=== PATIENT | male | born 1980 | race Caucasian/White ===

== ENCOUNTER 2016-08-22 08:48 | Inpatient (IN) | payer SELFPAY ==
--- NOTE | 2016-08-22 08:58 | EDPHY ---
H & P Time Seen by Provider: 08/22/16 08:50 HPI/ROS: CHIEF COMPLAINT: Full Trauma Activation HISTORY OF PRESENT ILLNESS: The patient is a 35 year old male, brought in by EMS as a Full Trauma Activation. The patient fell 35 feet at an indoor climbing gym. The patient did not lose consciousness. He believes he landed on his feet. He has an obvious deformity to his left elbow and right ankle. The patient received 100mcg Fentanyl during transport with little relief. He denies chest pain, abdominal pain, nausea. He does report back pain as well, but notes a history of low back pain. Cervical collar in place. Patient met in ED by myself and trauma surgeon, Dr Puckett. REVIEW OF SYSTEMS: Aside from elements discussed in the HPI, a comprehensive 10-point review of systems was reviewed and is negative. PAST MEDICAL HISTORY: Low back pain. Tests positive for TB. SOCIAL HISTORY: Nonsmoker. No alcohol. VITAL SIGNS: Reviewed by me; see NN. GENERAL: Well-developed, well-nourished, in moderate distress secondary to pain. HEENT: Head: Atraumatic, normocephalic. Face: Abrasion at nasal bridge, dry blood on forehead. PERRL, EOMI, no nystagmus. Oropharynx: No trauma, normal occlusion. Neck: Cervical collar in place. CHEST: Nontender, no subcutaneous air palpable. LUNGS: Clear to auscultation bilaterally, breath sounds are equal. CARDIAC: Regular rate and rhythm, no rubs, murmurs or gallops. ABDOMEN: Soft, nontender, nondistended, bowel sounds normal. BACK: Not examined initially. EXTREMITIES: Deformity at left elbow with obvious dislocation. Good radial pulse. Significant right ankle deformity. Dopplerable posterior tibia pulse on right. NEURO: Alert and oriented x3, cranial nerves are intact throughout, normal motor , normal sensation. SKIN: Warm and dry, no rash. Portions of this note were transcribed by a medical care manager. I personally performed a history, physical exam, medical decision making, and confirmed accuracy of information the transcribed note. Constitutional: Initial Vital Signs Temperature (C) 36.5 C 08/22/16 08:48 Heart Rate 98 08/22/16 08:48 Respiratory Rate 18 08/22/16 08:48 Blood Pressure 168/104 H 08/22/16 08:48 O2 Sat (%) 98 08/22/16 08:48 O2 Delivery Mode Room Air Allergies/Adverse Reactions: No Known Allergies Allergy (Unverified 08/22/16 08:56) Home Medications: Medication Instructions Recorded NK [No Known Home Meds] 08/22/16 Medical Decision Making - Diagnostics Imaging: Results: CT scan of the head was obtained. I viewed the images independently on the PACS system. I discussed the results of the study with the radiologist, Dr. Mckeon. Impression: Normal. Please see the full radiology report. Results: CT scan of the cervical spine was obtained. I viewed the images independently on the PACS system. I discussed the results of the study with the radiologist, Dr. Mckeon. Impression: Normal. Please see the full radiology report. Results: CT scan of the chest was obtained. I viewed the images independently on the PACS system. I discussed the results of the study with the radiologist. Impression: Normal. Please see the full radiology report. Results: CT scan of the abdomen pelvis was obtained. I viewed the images independently on the PACS system. I discussed the results of the study with the radiologist. Impression: Normal. Please see the full radiology report. Results: CT scan of the lumbar spine was obtained. I viewed the images independently on the PACS system. I discussed the results of the study with the radiologist. Impression: T12, L1, L2 compression fractures. Please see the full radiology report. Results: CT scan of the thoracic spine was obtained. I viewed the images independently on the PACS system. I discussed the results of the study with the radiologist. Impression: T12, L1, L2 compression fractures. Please see the full radiology report. X-ray: Left ankle single view was obtained. I viewed the images myself on the PACS system. My interpretation of the images is: No fracture visualized on this incomplete study. The radiologist interpretation is: No fracture. I discussed the x-ray findings with the patient. X-ray: Right ankle single view was obtained. I viewed the images myself on the PACS system. My interpretation of the images is: Tibia/fibula fracture. The radiologist interpretation is: Unstable fractures of the right tibia and fibula. I discussed the x-ray findings with the patient. X-ray: Left elbow single view was obtained. I viewed the images myself on the PACS system. My interpretation of the images is: Dislocation. The radiologist interpretation is: Elbow dislocation, incompletely evaluated. I discussed the x -ray findings with the patient. CT scan of the left upper extremity was obtained. I viewed the images independently on the PACS system. I discussed the results of the study with the radiologist. Impression:1. Dislocation of the left proximal radius and ulna at the elbow joint laterally with the proximal olecranon adjacent to the lateral distal humeral epicondyle. 2. Nondisplaced fracture suspected of the radial head. 3. Small chip fracture adjacent to the anterior distal margin of the olecranon. Small chip fracture also suspected adjacent to the proximal radial head. Please see the full radiology report. CT scan of the lower extremities was obtained. I viewed the images independently on the PACS system. I discussed the results of the study with the radiologist. The radiologist's interpretation is pending at this time. Please see the full radiology report. Procedures: Procedure: Trauma ultrasound Limited bedside ultrasound was performed and interpreted by myself for the indication of: Blunt trauma The exam was performed utilizing the thoracoabdominal emergency ultrasound protocol. Limited transthoracic echocardiogram: The pericardium was visualized and found to be negative for pericardial fluid. The study was negative for pericardial effusion. Limited abdominal ultrasound for blunt trauma. 1) The right upper quadrant was visualized and was found to be negative for intraperitoneal fluid. 2) The left upper quadrant was visualized and found to be negative for intraperitoneal fluid. The study was felt to be negative for free intraperitoneal fluid. Limited pelvic ultrasound was conducted for abdominal tenderness. The bladder was visualized and did not reveal an anechoic area outside of the adjacent urinary bladder. Bladder was distended with urine. The images were saved on the ultrasound database. The procedure was performed by myself, Dr. Priest. Procedure: Conscious sedation. Indication: Elbow dislocation The patient is an appropriate candidate to tolerate procedural sedation. The patient's vitals signs and mental status are appropriate. The risks, benefits and alternatives of the sedation were discussed with the patient. The patient is ASA classification 1. The patient's Mallampati airway score was 1 and the patient did meet the 3-3-2 airway measurements. A time out was completed. The patient was sedated with 160mg Propofol. The patient was monitored with continuous pulse oximetry, jewelry coater and end tidal CO2. There were no complications and no significant hypoxemia. I performed both the sedation and the procedure. The total time I spent at the bedside during the procedural sedation was [ ] minutes. The patient was examined after the procedural sedation and has returned to their pre-sedation baseline with normal vital signs and a normal examination. Procedure: Reduction of dislocated elbow Time-out completed immediately before the procedure. IV established. O2 administered. Placed on pulse oximeter and [id number]. Neurovascular exam intact pre-procedure. Given total of 160mg Propofol sedation. The left elbow was reduced using traction-countertraction. Reassessed post-procedure. Neurovascular status intact- normal median, radial, ulnar and axillary nerve motor and sensory exam. Exam indicated reduction. Confirmed reduction on X-ray. Arm was placed in a splint by the tech. After application of the splint I returned and re-examined the patient. The splint was adequately immobilizing the joint and distal to the splint the patient's circulation and sensation was intact.The procedure was performed by myself, Dr. Priest. Procedure: Splint placement A orthoglass splint was applied to the left lower extremity by the tech. After application of the splint I returned and re-examined the patient. The splint was adequately immobilizing the joint and distal to the splint the patient's circulation and sensation was intact. ED Course/Re-evaluation: Dr. Puckett, General Surgery was present when patient arrived. Patient was taken to CT. Imaging is pending. CT scans demonstrated lumbar spine fractures and left elbow dislocation, bilateral lower extremity ankle fractures. 1005: I spoke to Dr. Doran, Orthopedic surgery who will consult on the patient. Elbow reduced. Right ankle splinted. Admitted to general surgery. Differential Diagnosis: Differential diagnosis for this patients traumatic presentation was considered including but not limited to intracranial injury, long bone and pelvic bone fracture, spinal injury, intrathoracic injury, extremity injury, intra- abdominal injury, lacerations, abrasions, and contusions. Consult/Admit Bed Type: Dr Puckett, [facility] - Data Points Laboratory Results: Laboratory Results 08/22/16 08:55 08/22/16 08:55 Medications Given: Discontinued Medications Hydromorphone HCl (Dilaudid) 0.2 mg IVP Q2HRS PRN PRN Reason: Pain, Severe Unable to Take PO Stop: 09/01/16 10:29 Last Admin: 08/22/16 20:15 Dose: 0.2 mg Hydromorphone HCl (Dilaudid) 0.8 mg IVP ONCE ONE Stop: 08/22/16 21:00 Last Admin: 08/22/16 21:08 Dose: 0.8 mg Cefazolin Sodium/Dextrose (Ancef 2 Gm (Premix)) 100 mls @ 200 mls/hr IV ONCE ONE Stop: 08/23/16 10:29 Last Admin: 08/23/16 10:19 Dose: Not Given Cefazolin Sodium/Dextrose (Ancef 2 Gm (Premix)) 100 mls @ 200 mls/hr IV Q8HRS LETICIA PRN Reason: Protocol Stop: 08/24/16 06:29 Last Admin: 08/24/16 05:15 Dose: 100 mls Oxycodone HCl (Oxycodone Ir) 5 - 15 mg PO Q3H PRN PRN Reason: Pain, Severe Able to Take PO Stop: 09/02/16 18:40 Last Admin: 08/23/16 22:11 Dose: 5 mg Departure - Departure Disposition: [facility] Inpatient Acute Clinical Impression: Elbow dislocation, Tibia/fibula fracture, T12 compression fracture, Compression fracture of L2, Compression fracture of L1 lumbar vertebra, Injury resulting from fall from height Condition: Fair Report Scribed for: Munira Priest Report Scribed by: Marcella Simmons Date of Report: 08/22/16 Time of Report: 08:48
[2016-08-22] MEDS ORDERED: ONDANSETRON 4 MG/2 ML VIAL ONE (09:00)
[2016-08-22 09:18] LABS: ABSOLUTE NRBC COUNT 0.02 10^3/uL (0-0.01); ADD DIFF? YES; ADD MORPH? NO; ADD SCAN? NO; ATYPICAL LYMPHOCYTE FLAG 20 (0-99); FRAGMENT RBC FLAG 0 (0-99); HEMATOCRIT 48.9 % (40.0-51.0); HEMOGLOBIN 17.1 g/dL (13.7-17.5); LEFT SHIFT FLG 60 (0-99); LIPEMIA HEMOLYSIS FLAG 90 (0-99); MEAN CELL HEMOGLOBIN 31.5 pg (27.9-34.1); MEAN CELL VOLUME 90.1 fL (81.5-99.8); MEAN PLATELET VOLUME 11.2 fL (8.7-11.7); NRBC-AUTO% 0.3 % (0.0-0.2); PLATELET CLUMPS FLAG 0 (0-99); PLATELET COUNT 253 10^3/uL (150-400); RED BLOOD CELL COUNT 5.43 10^6/uL (4.40-6.38)
[2016-08-22] MEDS ORDERED: HYDROmorphONE/DILAUDID 2 MG/ML INJ ONE (09:20)
[2016-08-22 09:29] LABS: ANION GAP 16 mEq/L (8-16); CALCIUM 9.7 mg/dL (8.5-10.4); CARBON DIOXIDE 21 mEq/l (22-31); CHLORIDE 104 mEq/L (97-110); GLOMERULAR FILTRATION RATE > 60; GLUCOSE 117 mg/dL (70-100); INR 1.14 (0.83-1.16); POTASSIUM 3.9 mEq/L (3.5-5.2); PROTIME(PATIENT) 14.5 SEC (12.0-15.0); SODIUM 141 mEq/L (134-144)
[2016-08-22 09:30] LABS: APTT 30.7 SEC (23.0-38.0)
[2016-08-22 09:48] LABS: PLATELET ESTIMATE ADEQUATE (ADEQ)
[2016-08-22] MEDS ORDERED: PROPOFOL 200 MG/20 ML VIAL ONE ×2 (10:08→10:34)
[2016-08-22] MEDS ORDERED: ONDANSETRON 4 MG/2 ML VIAL IVP PRN (10:13)
[2016-08-22] MEDS ORDERED: fentaNYL 100 MCG/2 ML INJ ONE ×2 (10:31→10:35)
--- NOTE | 2016-08-22 10:41 | GHP ---
DATE OF ADMISSION: 08/22/2016 ADMITTING DIAGNOSES: 1. Fall from height (approximately 35 feet). 2. Dislocation of left elbow. 3. Compression fracture with anterior wedging of T12, L1, L2. 4. Comminuted fracture of right distal tibia and fibula. 5. Comminuted fracture of the left distal fibula and anterior pilon left tibia with evidence of old fractures of the cuboid and cuneiform fractures, left foot. HISTORY: The patient is a 35-year-old white male who was climbing at the [employer]. He was top roped but felt that his harness knot came loose. He fell landing on his feet and then fell back onto his back. He was not knocked out. He was brought by EMS to [facility]. He stated he had a little difficulty breathing initially but that has resolved. His airway is clear at this point. His breathing is unrestricted. There is no obvious bleeding. He complains of left elbow pain, lumbar pain and bilateral ankle pain. A focused history reveals: ALLERGIES: He has no known allergies. MEDICATIONS: He does not take any medications. SOCIAL HISTORY: He does not smoke. He denies alcohol use. PAST SURGICAL HISTORY: There is no prior surgery. PAST MEDICAL HISTORY: He was TB positive after a trip to [facility] and has gone through a full treatment for same. There is no history of hepatitis, HIV or transfusions. There is no history of rheumatic fever. LAST MEAL: 7:00 today PHYSICAL EXAMINATION: GENERAL: He is exposed and evaluated by Dr. Munira Priest and myself. Head-to- toe examination reveals a patient who is awake and alert. He complains of pain in his lower back, right and left ankles. He is moving all extremities. HEENT: His skull is normocephalic. He has a slight superficial laceration above the bridge of his left naris. NEURO EXAM: He is in a C-collar. He is oriented to person, place and time. He can tell us he last ate at 7 am this morning. He has normal dental occlusion. GCS = 15. Sensory motor intact with out lateralizing findings. No raccoon eyes or duarte sign. PERRLA CHEST: Clavicles are palpably normal. Chest sable to AP and lateral compression. Breath sounds equal. BACK: He complains of pain in his high lumbar region. ABDOMEN: Soft and nontender. PELVIS: Stable to AP and lateral compression. There is no tenderness in his hips. A FAST examination shows no evidence of intra-abdominal bleeding. EXTREMITIES: Right upper extremity is ranged and found to be normal. His left elbow is dislocated. He has normal function of his left forearm with normal pulse and sensation. There is no pain in his knees. His right ankle is obviously deformed. There are contusions about the left ankle. He does note that he fell in the past had a fracture of his forefoot. Good pulse/flow ( biphasic) by Doppler in right posterior tibial vessels. No pulse/flow in dorsalis pedis VITAL SIGNS: His vital signs are stable with pre hospital blood pressure of 114/ 66, heart rate of 84. On admission he was 145/98, heart rate 65, sat 100% on 2 L. He has received Zofran. He has received 0.5 mg of Dilaudid in divided doses. At this point his most pain is in the left elbow. DIAGNOSTICS: He is taken to CAT scan where CAT scans of his head, neck, chest, abdomen and pelvis are carried out. The CAT scan of his head shows no evidence of intracranial bleed. The CAT scan of his neck is unremarkable. The CAT scan of his chest shows no injury to the great vessels. No pneumothorax. No hemothorax. No rib fractures. Lumbar films do show compression fractures of T12 , L1, L2. Abdominal and pelvic CT is unremarkable. The hips are unremarkable. X-rays are as noted above. He does have a dislocation of his left elbow and the fractures as indicated. There is evidence of old fracture of the cuboid and cuneiform which is consistent with his history. His neck is examined and cleared. His left elbow is relocated in the ER by Dr Priest and Ortho JARRETT. PLAN: Orthopedics to be consulted. He will be admitted to Trauma. We will observe for the 1st 24 hours and if no other issues are identified will then transfer to Orthopedics. /[id number]/MODL MTDD
[2016-08-22] MEDS: KETOROLAC 30 MG/1 ML SDV IVP SCH ×3 (12:35→22:59)
[2016-08-22] MEDS: LR 1,000 ML IV SCH ×2 (12:38→23:00)
--- NOTE | 2016-08-22 13:11 | SOAPPROG ---
SOAP Progress Note Assessment/Plan: Assessment: Plan: Subjective: images reviewed elbow reduced pilon fracture PA to see. to follow. 1 pm. 08/22/16 Objective: Vital Signs Temp Pulse Resp BP Pulse Ox 36.9 C 62 14 132/82 H 97 08/22/16 11:38 08/22/16 11:38 08/22/16 11:38 08/22/16 11:38 08/22/16 11:38 08/21/16 08/22/16 08/23/16 05:59 05:59 05:59 Intake Total 2000 Output Total 775 Balance 1225 PT 14.5 SEC (12.0-15.0) 08/22/16 08:55 INR 1.14 (0.83-1.16) 08/22/16 08:55 ICD10 Worksheet Patient Problems: Problems Problem Status Onset Compression fracture of L1 lumbar vertebra Acute Compression fracture of L2 Acute Elbow dislocation Acute T12 compression fracture Acute Tibia/fibula fracture Acute
[2016-08-22 13:12] LABS: COLOR PALE YELLOW; LEUKOCYTE ESTERASE,URINE NEGATIVE (NEGATIVE); NITRITE,URINE NEGATIVE (NEGATIVE)
[2016-08-22] MEDS ORDERED: ACETAMINOPHEN 325 MG TAB PO SCH (14:00)
[2016-08-22] MEDS: ACETAMINOPHEN 500 MG TAB PO SCH ×2 (14:59→20:15)
[2016-08-22] MEDS: HYDROmorphONE/DILAUDID 1 MG/ML SYR IVP PRN ×3 (16:32→23:13)
--- NOTE | 2016-08-22 19:57 | PDCONSULT ---
Case Planner Note: [facility] for Orthopedics Consult note attending: dr. garret Allan jeronimo is a pleasant 35 yo male, trauma biba s/p ~35 foot fall while rock climbing in a gym, jeronimo reports that he remembers every thing, he thinks he fell because he did not "tie his rope" correctly. jeronimo remembers falling, reaching out trying to grab the rope with his right hand, and then landing on his feet and his left outstretched arm on the padded floor. patient denies loc. after his fall/landing, a 1st responder provided care until an ambulance arrived and took him to the ED. jeronimo reports that the majority of his pain is in his right ankle and left elbow. patient also stated he felt pain in his back. pmh: low back pain, tests pos for tb meds: no meds social: no alcohol, no tobacco or recreational drugs allergies: nkda Physical exam: LUE: no erythema/ecchymosis, moderate edema at left elbow, obvious left elbow dislocation w/ gross deformity of left elbow, no elbow rom assessed, palpable radial pulse, no palpable ulnar pulse RUE: no erythema/edema/ecchymosis, full elbow rom, full wrist rom, full digital rom, nvid w/ brisk cap refill, radial/ulnar pulses 2+, nvid LLE: no erythema/ecchymosis, mild edema in left ankle over lateral/medial malleolus, full knee rom, full ankle rom, nvid w/ palpable pt/dp pulses 2+, pain w/ palpation of medial/lateral mal RLE: no erythema/ecchymosis, moderate edema and obvious deformity at ankle, no ankle rom assessed, no palpable pt/dp pulses but pulses were present with ultrasound labs reviewed radiology reviewed CT b/l lower extremities -RLE: comminuted tibia and fibula fracture of pilon type -LLE: small avulsion fracture of medial malleolus, comminuted distal fibula fracture -lumbar: compression fractures of t12, l1, l2 a/p 35 yo M s/p rock climbing fall of ~ 35 feet, no LOC, multiple orthopedic injuries in his left arm, left ankle and right ankle, along with compression fractures in spine. -admit to trauma service for observation -pain mgmt per primary team, proph per primary -LUE: elbow dislocation, reduced in ED by Greer DONOVAN and dr. hinton, to remain in splint/sling -LLE: remain in posterior slab splint -RLE: remain in posterior slab splint, plan for right lower extremity orif of tib/fib on 08/23/[address] colon, therefore npo at midnight case discussed w/ dr. alegria and dr. colon, dr. colon reviewed b/l ankle ct's
[2016-08-22] MEDS ORDERED: HYDROmorphONE/DILAUDID 1 MG/ML SYR IVP ONE (20:59)
--- NOTE | 2016-08-22 21:18 | GCON ---
REASON FOR CONSULTATION: Bilateral ankle and left elbow injuries. HISTORY: The patient is a 35-year-old who fell approximately 35 feet while climbing resulting in bilateral ankle and left elbow injuries. PHYSICAL EXAMINATION: On examination, there is mild varus angulation of his right ankle with no visible deformity of his left ankle. His left elbow was initially in a deformed and dislocated position. IMAGING: Radiographs show a complex right pilon fracture with a minimally displaced, apparently stable left lateral malleolus fracture. There is additionally left elbow dislocation. PLAN: His elbow underwent closed reduction by my physician's automotive service assistant, Latrell Mendez. Bilateral lower extremities were placed in posterior splints. His right ankle would undergo a staged operative open reduction, internal fixation, with the 1st stage being tomorrow and the 2nd stage being when soft-tissue levels allow for safe intervention. The left ankle would likely be treated nonsurgically. The aforementioned operations were explained to the patient in detail. He acknowledges severity of his right ankle injury with the risk for development of posttraumatic arthrosis, despite optimal treatment. /[id number]/MODL MTDD
[2016-08-23] MEDS: HYDROmorphONE/DILAUDID 1 MG/ML SYR IVP PRN ×3 (03:18→16:19)
[2016-08-23 05:29] LABS: HEMATOCRIT 38.9 % (40.0-51.0); HEMOGLOBIN 13.5 g/dL (13.7-17.5); MEAN CELL HEMOGLOBIN 31.2 pg (27.9-34.1); MEAN CELL HEMOGLOBIN CONCENTR. 34.7 g/dL (32.4-36.7); MEAN CELL VOLUME 89.8 fL (81.5-99.8); RED BLOOD CELL COUNT 4.33 10^6/uL (4.40-6.38); RED CELL DISTRIBUTION WIDTH 11.9 % (11.5-15.2)
[2016-08-23] MEDS: ACETAMINOPHEN 500 MG TAB PO SCH ×3 (05:38→22:11)
[2016-08-23] MEDS: KETOROLAC 30 MG/1 ML SDV IVP SCH ×4 (05:38→23:02)
[2016-08-23 06:01] LABS: ALANINE AMINOTRANSFERASE 51 IU/L (21-72); ALBUMIN 3.2 g/dL (3.5-5.0); ALKALINE PHOSPHATASE 43 IU/L (38-126); ANION GAP 5 mEq/L (8-16); ASPARTATE AMINOTRANSFERASE 58 IU/L (17-59); BILIRUBIN,TOTAL 1.1 mg/dL (0.1-1.4); CALCIUM 8.5 mg/dL (8.5-10.4); CARBON DIOXIDE 26 mEq/l (22-31); CHLORIDE 102 mEq/L (97-110); CREATININE 0.7 mg/dL (0.7-1.3); GLOMERULAR FILTRATION RATE > 60; GLUCOSE 104 mg/dL (70-100); POTASSIUM 4.4 mEq/L (3.5-5.2); SODIUM 133 mEq/L (134-144); TOTAL PROTEIN 5.6 g/dL (6.3-8.2)
[2016-08-23] MEDS: LR 1,000 ML IV SCH (07:52)
[2016-08-23] MEDS ORDERED: ceFAZolin 2 GM/DEXTROSE 100 ML IV ONE (10:00)
[2016-08-23] MEDS ORDERED: BUPIVACAINE 0.5% 30 ML SDV ONE (10:01)
[2016-08-23] MEDS ORDERED: MIDAZOLAM 2 MG/2 ML VIAL ONE (10:13)
[2016-08-23] MEDS ORDERED: fentaNYL 100 MCG/2 ML INJ ONE ×2 (10:37→13:34)
[2016-08-23] MEDS ORDERED: PROPOFOL/EMULSION 500 MG/50 ML BOTTLE IV ONE ×2 (10:37)
[2016-08-23] MEDS ORDERED: ROCURONIUM 50 MG/5 ML VIAL ONE ×3 (11:06→13:02)
[2016-08-23] MEDS ORDERED: GLYCOPYRROLATE 0.2 MG/1 ML VIAL ONE ×3 (11:06→14:20)
[2016-08-23] MEDS ORDERED: DEXAMETHASONE 4 MG/ML VIAL ONE (11:06)
[2016-08-23] MEDS ORDERED: fentaNYL 250 MCG/5 ML INJ ONE (11:11)
--- NOTE | 2016-08-23 11:23 | TRAUMAPN ---
- Problem/Surgery Performed (1) Injury resulting from fall from height Assessment/Plan: PAD#1 08/23/2016 Assessment: Patient reports no new issues. Pain well controlled. Plan: Dr. Perez, Neurosurgery, to see Boris today. Dr. Bowman will take him to the OR fo ORIF. Subjective: No complaints. He reports both eructation and flatus. Objective: Vital Signs Temp Pulse Resp BP Pulse Ox 36.8 C 62 14 111/74 98 08/23/16 07:51 08/23/16 07:51 08/23/16 07:51 08/23/16 07:51 08/23/16 07:51 Laboratory Results 08/23/16 04:40 08/23/16 04:40 08/22/16 08/23/16 08/24/16 05:59 05:59 05:59 Intake Total 4339 0 Output Total 1375 200 Balance 2964 -200 PT 14.5 SEC (12.0-15.0) 08/22/16 08:55 INR 1.14 (0.83-1.16) 08/22/16 08:55 - C-Spine Clearance Cervical Spine Cleared: Yes Provider who Cleared Cervical Spine: Lavern Physical Exam - Physical Exam General Appearance: WD/WN, alert, no apparent distress Neck: non-tender, full range of motion, supple, normal inspection Respiratory: chest non-tender, lungs clear, normal breath sounds Cardiac/Chest: regular rate, rhythm Abdomen: non-tender, soft, other (Hypoactive bowel sounds) Male Genitalia: deferred Rectal: deferred Back: Normal inspection Skin: normal color, warm/dry (Left upper extremity in splint and sling, Both lower extermities in splints.) Neuro/Psych: no motor/sensory deficits, alert, normal mood/affect, oriented x 3 Time Spent w/Patient (minutes): 25
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
[2016-08-23] MEDS ORDERED: epHEDrine SULFATE 10 MG/ML SYR ONE ×2 (12:21)
[2016-08-23] MEDS ORDERED: PHENYLEPHRINE HCL 100 MCG/ML SYR ONE (12:21)
[2016-08-23] MEDS ORDERED: PROPOFOL 200 MG/20 ML VIAL ONE ×2 (13:33)
[2016-08-23] MEDS ORDERED: FUROSEMIDE 20 MG/2 ML VIAL ONE (13:36)
[2016-08-23] MEDS ORDERED: ONDANSETRON 4 MG/2 ML VIAL ONE (14:17)
[2016-08-23] MEDS ORDERED: NEOSTIGMINE METHYLSULFATE 5 MG/5 ML SYR ONE (14:20)
--- NOTE | 2016-08-23 14:50 | POSTOPPROG ---
Post Op Note Date of Operation: 08/23/16 Surgeon: Evaristo Bowman Anesthesia: GET(General Endotracheal) Pre-op Diagnosis: R tib/fib pilon, L lat mal fx, L Deltoid lig tear Post-op Diagnosis: Same Procedure: ORIF R tib/fib pilon, ORIF L lat mal, L deltoid ligament repair Inf/Abcess present in the surg proc area at time of surgery?: No EBL: 50-100
[2016-08-23] MEDS ORDERED: NALOXONE HCL 0.4 MG/ML INJ IVP PRN (14:54)
[2016-08-23] MEDS ORDERED: morphINE PCA 30 MG/30 ML PCA IV PRN (14:54)
[2016-08-23] MEDS ORDERED: D5W 1/2 NS W/ 20 KCl/L 1,000 ML IV SCH (15:00)
[2016-08-23] MEDS: oxyCODONE IR 5 MG TAB PO PRN ×2 (20:09→22:11)
[2016-08-23] MEDS: ceFAZolin 2 GM/DEXTROSE 100 ML IV SCH (22:11)
[2016-08-23] MEDS ORDERED: ZOLPIDEM TARTRATE 5 MG TAB PO PRN (22:30)
[2016-08-24] MEDS: HYDROmorphONE/DILAUDID 2 MG TAB PO PRN ×6 (03:53→22:21)
[2016-08-24] MEDS: ACETAMINOPHEN 500 MG TAB PO SCH ×3 (05:14→22:22)
[2016-08-24] MEDS: ceFAZolin 2 GM/DEXTROSE 100 ML IV SCH (05:15)
[2016-08-24] MEDS: KETOROLAC 30 MG/1 ML SDV IVP SCH ×4 (05:15→23:40)
--- NOTE | 2016-08-24 05:51 | SOAPPROG ---
SOAP Progress Note Assessment/Plan: Assessment: R Pilon, L lat malleolus, L elbow dislocation S/P ORIF L, Stage 1 ORIF R Pain tolerable (block still functioning) sasha diet + U/O Dressing intact, some sang D/C on R Toes with good cap refill Plan: Limited OOB Elevation BL LE Pt will need stage 2 ORIF on R in 5-7 days 08/24/16 05:48 Objective: Vital Signs Temp Pulse Resp BP Pulse Ox 36.7 C 76 15 101/58 L 99 08/24/16 03:48 08/24/16 03:48 08/24/16 03:48 08/24/16 03:48 08/24/16 03:48 Laboratory Results 08/23/16 04:40 08/23/16 04:40 08/22/16 08/23/16 08/24/16 05:59 05:59 05:59 Intake Total 4339 4450 Output Total 1375 3185 Balance 2964 1265 PT 14.5 SEC (12.0-15.0) 08/22/16 08:55 INR 1.14 (0.83-1.16) 08/22/16 08:55 ICD10 Worksheet Patient Problems: Problems Problem Status Onset Compression fracture of L1 lumbar vertebra Acute Compression fracture of L2 Acute Elbow dislocation Acute Injury resulting from fall from height Acute T12 compression fracture Acute Tibia/fibula fracture Acute
--- NOTE | 2016-08-24 07:56 | SOAPPROG ---
SOAP Progress Note Assessment/Plan: Assessment: 35 yo male s/p fall at climbing gym with multiple orthopedic injuries including T12,L1,L2 compression fractures. He underwent left RLE surgery yesterday and states he feels his block wearing off from that. He has a splinted left LE below the knee and a splinted left upper extremity due to elbow disclocation His back does not bother him much at the moment He denies radiating pain around his back or ribs and denies sensory changes other than his right leg coming off the block Plan: Needs TLSO and upright xrays once fitted to ensure no progression of his fractures. Unable to bear weight on right leg and is pivot only with left leg. 08/24/16 07:53 Subjective: sitting up in bed eating breakfast. States his back is not bothering him much. Feels the block on his right leg is wearing off. Objective: Vital Signs Temp Pulse Resp BP Pulse Ox 36.7 C 76 15 101/58 L 99 08/24/16 03:48 08/24/16 03:48 08/24/16 03:48 08/24/16 03:48 08/24/16 03:48 Laboratory Results 08/23/16 04:40 08/23/16 04:40 08/23/16 08/24/16 08/25/16 05:59 05:59 05:59 Intake Total 4339 4450 Output Total 1375 3185 Balance 2964 1265 PT 14.5 SEC (12.0-15.0) 08/22/16 08:55 INR 1.14 (0.83-1.16) 08/22/16 08:55 Neuro: limited testing due to splinting and recent surgery to RLE sensation intact throughout ICD10 Worksheet Patient Problems: Problems Problem Status Onset Compression fracture of L1 lumbar vertebra Acute Compression fracture of L2 Acute Elbow dislocation Acute Injury resulting from fall from height Acute T12 compression fracture Acute Tibia/fibula fracture Acute
[2016-08-24] MEDS: HYDROmorphONE/DILAUDID 1 MG/ML SYR IVP PRN ×3 (09:17→17:07)
--- NOTE | 2016-08-24 10:28 | TRAUMAPN ---
- Problem/Surgery Performed (1) Injury resulting from fall from height Assessment/Plan: PAD#1 08/23/2016 Assessment: Patient reports no new issues. Pain well controlled. Plan: Dr. Perez, Neurosurgery, to see Boris today. Dr. Bowman will take him to the OR fo ORIF. 08/24/2016 Assessment: Patient doing well. Pain controlled. Moving his bowels. Orthopedics managing his main issues (orthopedic) and Neurosurgery is following his compression fractures. A TLSO brace has arrived but upright xray yet to be obtained. Plan: Defer to Dr. Bowman. Subjective: slept well. pain controlled. moving bowels. Objective: Vital Signs Temp Pulse Resp BP Pulse Ox 36.3 C 58 L 15 127/88 H 96 08/24/16 08:00 08/24/16 08:00 08/24/16 08:00 08/24/16 08:00 08/24/16 08:00 Laboratory Results 08/23/16 04:40 08/23/16 04:40 08/23/16 08/24/16 08/25/16 05:59 05:59 05:59 Intake Total 4339 4450 Output Total 1375 3185 150 Balance 2964 1265 -150 PT 14.5 SEC (12.0-15.0) 08/22/16 08:55 INR 1.14 (0.83-1.16) 08/22/16 08:55 - C-Spine Clearance Cervical Spine Cleared: Yes Provider who Cleared Cervical Spine: Lavern Physical Exam - Physical Exam General Appearance: WD/WN, alert, no apparent distress Neck: non-tender, full range of motion, supple Respiratory: chest non-tender, lungs clear, normal breath sounds Cardiac/Chest: regular rate, rhythm Abdomen: normal bowel sounds, non-tender, soft Male Genitalia: deferred Rectal: deferred Back: Normal inspection Skin: normal color, warm/dry
[2016-08-25] MEDS: HYDROmorphONE/DILAUDID 2 MG TAB PO PRN ×2 (00:57→10:09)
[2016-08-25] MEDS: KETOROLAC 30 MG/1 ML SDV IVP SCH (05:50)
[2016-08-25] MEDS: ACETAMINOPHEN 500 MG TAB PO SCH (05:50)
--- NOTE | 2016-08-25 06:04 | SOAPPROG ---
SOAP Progress Note Assessment/Plan: Assessment: R Pilon, L lat malleolus, L elbow dislocation S/P ORIF L, Stage 1 ORIF R Pain tolerable (block still functioning) sasha diet + U/O Dressing intact, some sang D/C on R Toes with good cap refill Plan: Limited OOB Elevation BL LE Pt will need stage 2 ORIF on R in 5-7 days 08/24/16 05:48 08/25/16 06:02 Pain tolerable on po Sasha diet Progressing with transfers Splint/Dressings intact No new D/C NV unchanged D/C home - return next week for additional RLE surgery Objective: Vital Signs Temp Pulse Resp BP Pulse Ox 37.2 C 72 14 133/74 H 93 08/25/16 04:00 08/25/16 04:00 08/25/16 04:00 08/25/16 04:00 08/25/16 04:00 Laboratory Results 08/23/16 04:40 08/23/16 04:40 08/24/16 08/25/16 08/26/16 05:59 05:59 05:59 Intake Total 4450 1500 Output Total 3185 1800 Balance 1265 -300 PT 14.5 SEC (12.0-15.0) 08/22/16 08:55 INR 1.14 (0.83-1.16) 08/22/16 08:55 ICD10 Worksheet Patient Problems: Problems Problem Status Onset Compression fracture of L1 lumbar vertebra Acute Compression fracture of L2 Acute Elbow dislocation Acute Injury resulting from fall from height Acute T12 compression fracture Acute Tibia/fibula fracture Acute
[2016-08-25 07:26] VITALS: BP 141/96; PULSE 85; RESP 18; TEMP 98.3; O2SAT 99
--- NOTE | 2016-08-25 08:22 | GOP ---
[f rep st] OPERATIVE REPORT DATE OF OPERATION: 08/23/2016 SURGEON: Evaristo Bowman MD ANESTHESIA: General, plus popliteal and saphenous nerve blocks on the right performed by the anesth esiologist at my request for postoperative pain management. PREOPERATIVE DIAGNOSIS: 1. Right distal tibia and fibular pilon fracture. 2. Left lateral malleolus fracture. 3. Left deltoid ligament disruption. POSTOPERATIVE DIAGNOSIS: 1. Right distal tibia and fibular pilon fracture. 2. Left lateral malleolus fracture. 3. Left deltoid ligament disruption. PROCEDURE PERFORMED: 1. Open reduction, internal fixation right intra-articular tibia and pilon and fibula fracture (sta ge I internal fixation). 2. Application, right tibial calcaneal external fixator. 3. Open reduction, internal fixation, left lateral malleolus fracture. 4. Left deltoid ligament repair. 5. Intraoperative use of fluoroscopy. FINDINGS: ESTIMATED BLOOD LOSS: Minimal. INDICATIONS: Patient is a 35-year-old who sustained a fall of approximately 30 feet while climbing resulting in bilateral lower extremity injuries. On the right, he had a complex tibial pilon fractu re with left lateral malleolus fracture. Based on the nature of his injury, it was recommended that operative treatment consisting of open reduction, internal fixation be pursued. The patient acknow ledged he understood the potential risks including, but not limited to, bleeding, infection, neurova scular damage, limb loss, limited limb function, malunion, nonunion, need for hardware removal, pain or functional limitations despite operative treatment and anesthetic risks. He additionally acknow ledged that based on the severity of his injury, despite optimal operative treatment he was still at a significant increased risk for development of pain, stiffness, functional limitations and arthros is. He acknowledged he understood the potential risks, planned procedure, and postoperative plan we ll, and had all questions answered. He gave his consent for the operative procedure. DESCRIPTION OF PROCEDURE: Patient was brought in the patient brought to the operating room, and aft er popliteal and saphenous nerve blocks performed by the anesthesiologist at my request for postoper ative pain management, IV antibiotics were administered. He was placed in the supine position where general anesthetic was administered. A stress examination of the left ankle revealed significant v algus instability, consistent with complete disruption of the deltoid ligament. Based on this exami nation, it was felt that operative treatment on the left was necessary. A tourniquet was placed on the left thigh, a bump underneath the left hip and shoulder, and left lower extremity was prepped an d draped in standard sterile fashion. After marking the incision and Leopoldo wrap exsanguination, a isaura rniquet was inflated to 250. An oblique incision was made along the anterior and medial aspect of t he ankle. Skin and subcutaneous tissue were sharply incised. Complete disruption of the superficia l deep deltoid complexes were noted. A juggernaut suture anchor was placed in the medial malleolus at the location of the insertion of the deltoid. The suture ends were then secured into the disrupt ed deltoid ligament which was easily identifiable. The ligament was secured back into the medial ma lleolus, providing stability to the medial complex. Attention was then directed laterally. A longitudinal incision was made along the distal aspect of lateral malleolus. Skin and subcutaneous tissue were sharply incised. Sharp dissection was carried dorsal to the peroneal tendons, exposing the distal fibula. The fracture was reduced with a dental pick, and provisionally pinned with a Kris wire. A 2.4 mm T plate was contoured to fit the co mminuted distal fibula, serving as a buttress. Through the plate, 2 distal 2.[address] d in a distal to proximal direction. Two additional 2.4 mm screws were placed proximal to the fract ure, stabilizing the construct. Fluoroscopic views confirmed satisfactory hardware position and ranjith tomic fracture reduction. Attention was directed towards closure. The deep tissue was closed with 2-0 Vicryl suture in interr upted fashion. Subcutaneous tissue was closed with 3-0 Vicryl suture in interrupted fashion. The s kin was closed with 4-0 nylon interrupted sutures. The wounds were dressed with sterile Adaptic, 4 x 4, and Kerlix. The tourniquet was deflated on the left. The tourniquet was then placed on the ri t thigh, keeping the back table sterile during the process. A bump was placed underneath the righ t hip and shoulder, and the right lower extremity was prepped and draped in standard sterile fashion . A longitudinal incision was made along the posterior border of the fibula, extending from the ank le level proximally above the fracture site. Skin and subcutaneous tissue were sharply incised. Sh jose elias dissection was carried anterior to the peroneal tendons exposing the fibula. The superficial pe roneal nerve was identified and carefully retracted out of harm's way. A 10-hole, 3.5 low-profile r econ plate was contoured to fit the fibula. Utilizing a 2-point reduction clamp, the fracture was p rovisionally reduced. The plate was secured distally with two 3.5 mm bicortical screws just distal to the fracture and in the most distal hole in the plate. Utilizing the plate as a reduction aid, t he fracture was anatomically reduced. The plate was then secured proximally with two 3.5 mm bicorti ludy screws. Fluoroscopic views confirmed optimal hardware placement and anatomic reduction of the f racture. Through the same incision the posterior tibia was exposed. The interval between the flexor hallucis longus, and the peroneal tendon was utilized for exposure. A portion of the flexor hallucis longus was reflected off the posterior aspect of the tibia. The posterior lateral fragment was exposed. A 2.7 mm recon plate was slightly contoured to fit the posterior tibia. Holding the posterior fract ure in a reduced position with provisional Kris wire the plate was secured to the tibia in a po sterior to anterior direction with two 2.7 mm cortical screws. Unicortical 2.7 mm locking screws we re placed in the posterior fragment to hold this in a reduced position out to length while not compr omising the reduction of the anterior fragments at a subsequent date. This was necessary as reducti on of this piece would not have been possible through an anterior approach. The fluoroscopic views confirmed favorable reduction of this fracture fragment. An additional more distal posterior latera l fragment was provisionally pinned with a Kris wire. A separate 2.0 mm DC plate was contoured to fit the distal aspect of the posterior lateral tibia. Fixation was accomplished with two 2.4 mm cortical screws in the posterior distal tibial segment holding this fragment in a reduced position as well. Fluoroscopic views confirmed favorable reduction and hardware placement. Attention was directed toward closure of this wound. The deep tissue was closed with 2-0 Vicryl sut ure in interrupted fashion, subcutaneous tissue closed with 3-0 Vicryl suture in an interrupted fash ion. Skin was closed with 4-0 nylon interrupted sutures. The bump was removed, and attention was d irected toward spanning fixation. A 5.0 mm Schanz pin was placed in the superior medial calcaneal t uberosity and tibia through small incisions with careful drilling, particularly distally avoiding da mage to the neurovascular bundle. A unilateral carbon fiber bar was attached to the Shantz pins wit h a bar-to-pin clamp, and appropriate distraction through the joint was accomplished. The wounds we re dressed with sterile Adaptic, 4 x 4, and Webril. The tourniquet had been deflated prior to skin closure with no untoward bleeding seen. A posterior fiberglass splint was applied. The patient was taken to the recovery room, extubated, in stable condition postoperatively. All sponge, needle, an d instrument counts were reported as being correct. DRAINS: None. COMPLICATIONS: None. PLAN: The patient will be admitted for medical management and elevation. He would return in approx imately 1 week pending adequate resolution of his soft tissue for 2nd-stage open reduction, internal fixation of his severely comminuted distal tibial segment. /[id number]/MODL
--- NOTE | 2016-08-25 09:02 | NEUSURGPN ---
Assessment/Plan: Assessment/Plan: 35 yo male s/p fall at climbing gym with multiple orthopedic injuries including T12,L1,L2 compression fractures. -Has been tolerating brace okay, wear when >60 degrees -sitting upright xrays stable -Continue to optimize pain management -Discussed muscle spasms, pulmonary toilet, and bowel protocol with patient given lack of immobility given lack of movement due to injuries. -Patient will need follow up in Dr. Perez's office in 4 weeks with new AP/ lateral xrays of the thoracolumbar spine. -Will s/o at this time. please notify NS with any change in neuro/motor exam Subjective: LE pain from orthopedic injuries and back stiffness. Objective: NAD A&Ox3 MAEx4, 5/5 notedin electrician helper bilaterally, RUE, LLE, RLE noted fully test do to pins, able to contract quad without difficulty. - Physician Discussed Patient with : Chris Neurosurgery Physical Exam - Vitals, I&O, Labs I and O 08/24/16 08/25/16 08/26/16 05:59 05:59 05:59 Intake Total 4450 1500 500 Output Total 3185 1800 250 Balance 1265 -300 250 Intake: Oral (ml) 1100 1500 500 IV Intake (ml) 3150 IV Infused (ml) 200 ceFAZolin 2 GM/DEXTROSE 200 100 ml @ 200 mls/hr IV Q8HRS [facility] Rx#:[id number] Output: Urine (ml) 3175 1800 250 Bedside Commode 150 Catheter 1400 Toilet 250 Urinal 1775 1400 250 Estimated Blood Loss (ml) 10 Other: Intake Quantity Yes Yes Sufficient Number of Voids Catheter 1 Urinal 1 2 Number of Stools Bedside Commode 1 Vital Signs Temp Pulse Resp BP Pulse Ox 36.8 C 85 18 141/96 H 99 08/25/16 07:25 08/25/16 07:25 08/25/16 07:25 08/25/16 07:25 08/25/16 07:25 Laboratory Results 08/23/16 04:40 08/23/16 04:40 ICD10 Worksheet Patient Problems: Problems Problem Status Onset Compression fracture of L1 lumbar vertebra Acute Compression fracture of L2 Acute Elbow dislocation Acute Injury resulting from fall from height Acute T12 compression fracture Acute Tibia/fibula fracture Acute
[2016-08-30] MEDS ORDERED: PROPOFOL/EMULSION 500 MG/50 ML BOTTLE IV ONE (08:58)
[2016-08-30] MEDS ORDERED: DEXAMETHASONE 4 MG/ML VIAL ONE ×2 (08:59)
[2016-08-30] MEDS ORDERED: ROPIVACAINE HCL 150 MG/30 ML INJ ONE (09:00)
[2016-08-30] MEDS ORDERED: fentaNYL 100 MCG/2 ML INJ ONE ×3 (09:01→11:55)
[2016-08-30] MEDS ORDERED: ONDANSETRON 4 MG/2 ML VIAL ONE (11:41)
== END 2016-08-25 13:17 | disposition home or self-care (01) | DRG 493 ==
LOC: F3N 11:25
PROVIDERS: ADMIT Orthopaedic Surgery Foot and Ankle Surgery; ATTEND Surgery
PROC: 0QSJ04Z Reposition Right Fibula with Internal Fixation Device, Open Approach (ICD-10-PCS; principal; 2016-08-23 11:00)
PROC: 0QSK04Z Reposition Left Fibula with Internal Fixation Device, Open Approach (ICD-10-PCS; principal; 2016-08-23 11:00)
PROC: 0MS Bursae and Ligaments, Reposition (ICD-10-PCS; principal; 2016-08-23 11:00)
PROC: 0QSG04Z Reposition Right Tibia with Internal Fixation Device, Open Approach (ICD-10-PCS; principal; 2016-08-23 11:00)
DX: S82.871A Displaced pilon fracture of right tibia, initial encounter for closed fracture (principal); S22.080A Wedge compression fracture of T11-T12 vertebra, initial encounter for closed fracture; S32.010A Wedge compression fracture of first lumbar vertebra, initial encounter for closed fracture; S32.020A Wedge compression fracture of second lumbar vertebra, initial encounter for closed fracture; S82.62XA Displaced fracture of lateral malleolus of left fibula, initial encounter for closed fracture; S93.422A Sprain of deltoid ligament of left ankle, initial encounter; W17.89XA Other fall from one level to another, initial encounter; Y93.31 Activity, mountain climbing, rock climbing and wall climbing; S53.122A Posterior subluxation of left ulnohumeral joint, initial encounter; S92.212A Displaced fracture of cuboid bone of left foot, initial encounter for closed fracture; S92.232A Displaced fracture of intermediate cuneiform of left foot, initial encounter for closed fracture
CPT/HCPCS: 82947-QW; 97161-GP; 97166-GO; 97530-GP; A4565; C1713; C1769; G0378; J0690; J1100; J1170; J1885; J2250; J2370; J2405; J2704; J2710; J2795; J3010

== ENCOUNTER 2016-08-30 08:06 | Day surgery (SDC) | payer SELFPAY ==
[2016-08-30] MEDS ORDERED: BUPIVACAINE 0.5% 30 ML SDV ONE (08:11)
[2016-08-30] MEDS ORDERED: ceFAZolin 2 GM/DEXTROSE 100 ML IV ONE (10:30)
[2016-08-30] MEDS ORDERED: CEFAZOLIN 1 GM/DEXTROSE/50 ML BAG IV ONE (13:32)
--- NOTE | 2016-09-02 09:11 | GOP ---
[f rep st] OPERATIVE REPORT DATE OF OPERATION: 08/30/2016 SURGEON: Evaristo Bowman MD ANESTHESIA: General plus popliteal and saphenous nerve blocks performed by the anesthesiologist at my request for postoperative pain management. PREOPERATIVE DIAGNOSIS: 1. Right intra-articular distal tibial pilon fracture. 2. Retained external fixator, right lower leg. POSTOPERATIVE DIAGNOSIS: 1. Right intra-articular distal tibial pilon fracture. 2. Retained external fixator, right lower leg. PROCEDURE PERFORMED: 1. Open reduction and internal fixation of right intra-articular distal tibia fracture. 2. Removal of external fixator. 3. Intraoperative use fluoroscopy. FINDINGS: ESTIMATED BLOOD LOSS: Minimal. INDICATIONS: The patient is a 35-year-old who approximately 1 week prior sustained a severe comminu jose intra-articular distal tibia and fibula fracture. The patient underwent an initial first stage operation consisting of open reduction and internal fixation of his fibula, open reduction and inter nal fixation of his posterior lateral distal tibia, and application of a unilateral external fixator . There was significant comminution over the anterior lateral and anterior medial aspects of the antonio int, requiring additional operative treatment. The patient acknowledged he understood the potential risks of the operation including, but not limited to, bleeding, infection, neurovascular damage, li mb loss or limited limb function, malunion, nonunion, the need for hardware removal, the development of pain, functional limitations or arthrosis despite optimal operative treatment, and anesthetic ri sks. He acknowledged he understood the potential risks, planned procedure and postoperative plan we ll, and had all questions answered. He gave his consent for the operative procedure. DESCRIPTION OF PROCEDURE: The patient was brought to the operating room after IV antibiotics were a dministered. Popliteal and saphenous nerve blocks were performed by the anesthesiologist at my requ est for postoperative pain management. A tourniquet was placed on the right thigh, a bump underneat h the right hip and shoulder, and the right lower extremity was prepped and draped in the standard s terile fashion. After marking the incisions and Leopoldo wrap exsanguination, the tourniquet was inflate d to 250. An anterior lateral approach to the distal tibia was utilized for exposure, leaving an ad equate skin bridge from his posterior lateral incision. The skin and subcutaneous tissue were sharp ly incised. The superficial peroneal nerve was identified and retracted out of harm's way. The ext ensor retinaculum was incised, and dissection was carried lateral to the extensor digitorum communis tendons. Dissection was carried down to the distal tibia and joint capsule. The major anterior la teral fragment was windowed to allow for intra-articular visualization. A relatively small nonviabl e fragment was identified and removed. There was noted to be significant scuffing over the articula r surface of the anterior lateral fragment. The medial fragment was identified. This was split up the posterior medial cortex. An incision was made along the posterior medial aspect of the distal t ibia. Sharp dissection was carried along the posterior border of the tibia. Utilizing a 2-point re duction clamp, the cortical continuity was restored, subsequently restoring the articular surface di stally. A 2.4 mm DC plate was placed along the posterior medial border of the tibia and secured pro ximal to the fracture plane with two 2.4 mm screws, serving as a buttress. The anterior lateral seg ment major fragment was then reduced and provisionally pinned with a Kris wire. Fluoroscopic v iews confirmed favorable reduction. An anterior lateral distal tibial plate ([employer]) was slid extr aperiosteally along the lateral face of the tibia. Fixation was accomplished with 2.7 mm screws in a lag fashion through the distal aspect of the plate in an anterior to posterior direction, gaining purchase in the previously stabilized posterior lateral fragment. Additional 3.5 mm cortical lockin g screws were applied. The initial fixation had been accomplished just proximal to the plane of the fracture with a 3.5 mm bicortical screw going in an anterior lateral to posterior medial direction. Two additional proximal 3.5 mm bicortical screws were placed through a small incision proximally w ith dissection carried down on the plate with tenotomy scissors and protection of the neurovascular structures. In the posterior medial fragment, an additional 2.7 mm screw was placed in lag fashion across this segment. A small incision was then made inferior to the medial malleolus. Drilling wit h a 2.0 mm drill bit for placement of a 2.7 mm screw and stabilizing the medial malleolar fragment w as performed. A 2.0 mm drill bit was snapped with contact of 1 of the distal screws. An additional drill hole was made, and a 2.7 mm screw was placed across the segment in a distal to anterior fragme nt direction. The broken drill bit fragment was left imbedded in the bone. Fluoroscopic views conf irmed favorable reduction and hardware placement. Attention was directed towards closure. The retinaculum was closed with a 2-0 Vicryl suture in an i nterrupted fashion. The subcutaneous tissue was closed with 3-0 Vicryl suture in an interrupted fas hion. The skin was closed with 3-0 nylon interrupted vertical mattress sutures. There was mild ten jaswinder on the wound, but no significant difficulty with closure. The wound was dressed with sterile A daptic, 4 x 4, and Webril, and the leg was placed in a below-knee splint. The external fixator was removed with the pin sites left open. The patient was taken to the recovery room extubated and in s table condition postoperatively. All sponge, needle, and instrument counts were reported as being c orrect. DRAINS: None. COMPLICATIONS: None. PLAN: The patient will be discharged home nonweightbearing on his operative extremity. /[id number]/MODL
== END 2016-08-30 14:45 | disposition home or self-care (01) ==
LOC: FSGY 08:06
PROVIDERS: ATTEND Orthopaedic Surgery Foot and Ankle Surgery
PROC: 0QSG04Z Reposition Right Tibia with Internal Fixation Device, Open Approach (ICD-10-PCS; principal; 2016-08-30 09:45)
PROC: 0QPG05Z Removal of External Fixation Device from Right Tibia, Open Approach (ICD-10-PCS; principal; 2016-08-30 09:45)
DX: S82.871A Displaced pilon fracture of right tibia, initial encounter for closed fracture (principal); Z47.2 Encounter for removal of internal fixation device; Y93.31 Activity, mountain climbing, rock climbing and wall climbing; S53.102A Unspecified subluxation of left ulnohumeral joint, initial encounter; S32.010A Wedge compression fracture of first lumbar vertebra, initial encounter for closed fracture; S32.020A Wedge compression fracture of second lumbar vertebra, initial encounter for closed fracture; S22.080A Wedge compression fracture of T11-T12 vertebra, initial encounter for closed fracture; R76.11 Nonspecific reaction to tuberculin skin test without active tuberculosis
CPT/HCPCS: C1713; C1769; J0690

== ENCOUNTER → 2016-11-30 | Outpatient (CLI) | payer MEDICAID | LOC: FIMAGING 07:56 | PROVIDERS: ATTEND Orthopaedic Surgery Foot and Ankle Surgery | DX: S82.871D Displaced pilon fracture of right tibia, subsequent encounter for closed fracture with routine healing (principal); S82.491D Other fracture of shaft of right fibula, subsequent encounter for closed fracture with routine healing; X58.XXXD Exposure to other specified factors, subsequent encounter ==

== ENCOUNTER 2017-03-28 09:42 | Day surgery (SDC) | payer MEDICAID ==
--- NOTE | 2017-03-27 14:39 | GHP ---
[f rep st] PREOP HISTORY AND PHYSICAL DATE OF ADMISSION: 03/28/2017 DATE OF SURGERY: 03/28/2017. CHIEF COMPLAINT: Right ankle pain. HISTORY OF PRESENT ILLNESS: Patient is a 36-year old who sustained a fall climbing. He underwent op en reduction, internal fixation of a complex pilon fracture in August of 2016. The patient then walke d on it very early in the postop period resulting in hardware failure with resultant varus malalignme nt. PAST MEDICAL HISTORY: Unremarkable. PAST SURGICAL HISTORY: Positive for open reduction, internal fixation of bilateral ankle fractures. MEDICATIONS: He takes no medicines on a regular basis. ALLERGIES: Lists no drug allergies. SOCIAL HISTORY: Negative for tobacco use. PHYSICAL EXAMINATION: GENERAL: He is in overall appearing good health, no acute distress. HEENT: H ead is normocephalic. Pupils equal, round, reactive to light. Extraocular eye movements intact. NE CK: Supple. No JVD or lymphadenopathy. CHEST: Clear to auscultation. No rales, rhonchi, or wheez ing. HEART: Regular rate and rhythm. No murmurs or gallops. ABDOMEN: Soft, nontender, nondistend ed. GENITAL, RECTAL AND BREAST: Deferred. EXTREMITIES: Reveals moderate swelling in his right ank le. There is a bony prominence on the medial aspect of his distal tibia. ASSESSMENT: 1. Right tibial malunion. 2. Retained hardware, right ankle. PLAN: The patient is scheduled to undergo hardware removal with distal tibial corrective osteotomy. /[id number]/MODL
[2017-03-28] MEDS ORDERED: BUPIVACAINE 0.5% 30 ML SDV ONE (09:58)
[2017-03-28] MEDS ORDERED: LR 1,000 ML IV ONE (10:11)
[2017-03-28] MEDS ORDERED: ceFAZolin 2 GM/DEXTROSE 100 ML IV ONE (10:58)
[2017-03-28] MEDS ORDERED: CEFAZOLIN 2 GM/DEXTROSE/100 ML BAG IV ONE (11:02)
[2017-03-28] MEDS ORDERED: LIDOCAINE 2% 100 MG/5 ML SYR ONE (11:02)
[2017-03-28] MEDS ORDERED: ONDANSETRON 4 MG/2 ML VIAL ONE (11:02)
[2017-03-28] MEDS ORDERED: PROPOFOL 200 MG/20 ML VIAL ONE (11:02)
[2017-03-28] MEDS ORDERED: DEXAMETHASONE 4 MG/ML VIAL ONE (11:02)
[2017-03-28] MEDS ORDERED: MIDAZOLAM 2 MG/2 ML VIAL IVP ONE (11:03)
[2017-03-28] MEDS ORDERED: MIDAZOLAM 2 MG/2 ML VIAL ONE (11:04)
--- NOTE | 2017-03-28 11:05 | PDANEPAE ---
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, CXR was negative but he did abx 2012 - Neurologic History Hx Cerebrovascular Accident: No Hx Seizures: No Hx Dementia: No - Endocrine History Hx Diabetes: No - Renal History Hx Renal Disorders: No - Liver History Hx Hepatic Disorders: No - Neurological & Psychiatric Hx Hx Neurological and Psychiatric Disorders: No - Cancer History Hx Cancer: No - Congenital Disorder History Hx Congenital Disorders: No - GI History Hx Gastrointestinal Disorders: No - Other Health History Other Health History: wears glasses - Chronic Pain History Chronic Pain: Yes (right leg numbness still) - Surgical History Prior Surgeries: 08/30/16 right tibia external fixator removed/ ORIF with Colby ESPINOSA Review of Systems Review of systems is: negative Review of Systems: - Exercise capacity Exercise capacity: >=4 METS METS (RN): 6 METS ANE Patient History - Allergies Allergies/Adverse Reactions: No Known Allergies Allergy (Verified 02/21/17 11:30) - Home Medications Home medications: home medication list seen and reviewed Home Medications: Herbals/Supplements -Info Only 02/21/17 [Last Taken Unknown] - NPO status NPO Since - Liquids (Date): 03/28/17 NPO Since - Liquids (Time): 08:00 NPO Since - Solids (Date): 03/27/17 NPO Since - Solids (Time): 20:00 - Anes Hx Anes Hx: no prior problems - Smoking Hx Smoking Status: Never smoked - Family Anes Hx Family Anes Hx: none Family Hx Anesthesia Complications: none ANE Labs/Vital Signs - Vital Signs Blood Pressure: 119/81 Heart Rate: 67 Respiratory Rate: 18 O2 Sat (%): 99 Height: 175.26 cm Weight: 77.11 kg ANE Physical Exam - Airway Neck exam: FROM Mallampati Score: Class 1 Mouth exam: normal dental/mouth exam - Pulmonary Pulmonary: no respiratory distress - Cardiovascular Cardiovascular: regular rate and rhythym - ASA Status ASA Status: I ANE Anesthesia Plan Anesthesia Plan: GA w LMA (surgeon request popliteal nerve block, will avoid due to preexisting motor and sensory deficits in operative ankle)
[2017-03-28] MEDS ORDERED: HYDROmorphONE/DILAUDID 2 MG/ML INJ ONE (11:08)
[2017-03-28] MEDS ORDERED: CALCIUM CHLORIDE 1 GM/10 ML INJ ONE (11:15)
[2017-03-28] MEDS ORDERED: THROMBIN (BOVINE) 5,000 UNIT VIAL TP ONE (11:15)
[2017-03-28] MEDS ORDERED: epHEDrine SULFATE 10 MG/ML SYR ONE (11:27)
[2017-03-28] MEDS ORDERED: fentaNYL 100 MCG/2 ML INJ ONE ×2 (13:26→14:54)
[2017-03-28] MEDS ORDERED: ACETAMINOPHEN 500 MG TAB PO PRN (14:15)
[2017-03-28] MEDS ORDERED: ONDANSETRON 4 MG/2 ML VIAL IVP PRN (14:15)
[2017-03-28] MEDS ORDERED: OXYCODONE/APAP 5/325 TAB PO PRN (14:15)
[2017-03-28] MEDS ORDERED: HYDROmorphONE/DILAUDID 1 MG/ML INJ IVP PRN (14:15)
[2017-03-28] MEDS ORDERED: MEPERIDINE 25 MG/ML SYR IVP PRN (14:15)
[2017-03-28] MEDS ORDERED: NALOXONE HCL 0.4 MG/ML INJ IVP PRN (14:15)
[2017-03-28] MEDS ORDERED: PROMETHAZINE HCL 25 MG/ML INJ IVP PRN (14:15)
[2017-03-28] MEDS ORDERED: HYDROCODONE/APAP 5/325 TAB PO PRN (14:15)
[2017-03-28] MEDS ORDERED: fentaNYL 100 MCG/2 ML INJ IVP PRN (14:15)
[2017-03-28] MEDS ORDERED: DEXAMETHASONE 4 MG/ML VIAL IVP PRN (14:15)
--- NOTE | 2017-03-28 14:17 | POSTANESTH ---
Post Anesthetic Evaluation Cardiovascular Status: Normal, Stable, Similar to Pre-Op Cond Respiratory Status: Normal, Stable, Similar to Pre-op Cond. Level of Consciousness/Mental Status: Can Participate in Eval, Moderately Sleepy Pain Control: Adequate, Prn Tx Ordered Nausea/Vomiting Control: Adequate, Prn Tx Ordered Complications Possibly Related to Anesthesia: None Noted
--- NOTE | 2017-03-28 14:46 | POSTOPPROG ---
Post Op Note Date of Operation: 03/28/17 Surgeon: Evaristo Bowman Anesthesia: GET(General Endotracheal) Pre-op Diagnosis: Malunion L tibia, Retained hardware tibia, fibula Post-op Diagnosis: Same Procedure: L tib osteotomy, HWR fibula and tibia, local bone graft Inf/Abcess present in the surg proc area at time of surgery?: No EBL: Minimal
[2017-03-28] MEDS ORDERED: MEPERIDINE 25 MG/ML SYR ONE (14:57)
[2017-03-28 15:44] VITALS: RESP 16
[2017-03-28] MEDS ORDERED: OXYCODONE/APAP 5/325 TAB ONE (16:05)
[2017-03-28 16:18] VITALS: BP 133/89; PULSE 75; TEMP 97.3; O2SAT 97
--- NOTE | 2017-03-29 06:16 | GOP ---
[f rep st] OPERATIVE REPORT DATE OF OPERATION: 03/28/2017 SURGEON: Evaristo Bowman MD ANESTHESIA: General. PREOPERATIVE DIAGNOSIS: 1. Right tibial malunion. 2. Retained hardware, right tibia. 3. Retained hardware, right fibula. POSTOPERATIVE DIAGNOSIS: 1. Right tibial malunion. 2. Retained hardware, right tibia. 3. Retained hardware, right fibula. PROCEDURE PERFORMED: 1. Right tibial osteotomy. 2. Revision open reduction, internal fixation, right tibial malunion. 3. Hardware removal, right tibia. 4. Hardware removal, right fibula. 5. Local bone graft. 6. Intraoperative use of fluoroscopy. FINDINGS: ESTIMATED BLOOD LOSS: 100 mL. INDICATIONS: This patient is a 36-year-old who previously sustained a complex right pilon fracture. The patient underwent open reduction, internal fixation with anatomic alignment. The patient admitt edly had very early weightbearing on his fracture, which resulted in hardware failure and varus malal ignment. Fortunately, the articular segment appeared to heal without displacement. Based on the per sistence of swelling and varus malalignment, which was putting the patient at increased risk for deve lopment of posttraumatic arthrosis, after a prolonged discussion with the patient, a decision was mad e to revise the malunion correcting the deformity. The patient acknowledged he understood the potent ial risks of the operation, including but not limited to, bleeding, infection, neurovascular damage, loss of limb or function, malunion, nonunion, need for hardware removal, pain or functional limitatio n or development of arthrosis despite operative treatment, and anesthetic risks. He acknowledged he understood the potential risks, planned procedure, and postoperative plan well, and had all questions answered prior to surgery. He gave his consent for the operative procedure. DESCRIPTION OF PROCEDURE: The patient was brought to the operating room after IV antibiotics were ad ministered. He was placed in a supine position where general anesthetic was administered. The tourn iquet was placed on the right thigh and bump underneath the right hip and shoulder and right lower ex tremity was prepped and draped in standard sterile fashion. After marking the incision and Leopoldo wrap exsanguination, tourniquet was inflated to 250. Attention was initially directed toward the fibular hardware removal. The previous incision was utilized for exposure. Skin and subcutaneous tissue wer e sharply incised. Sharp dissection was carried dorsal to the peroneal tendons, exposing the lateral aspect of the fibula. The plate and screws were freed of their fibrous overgrowth and removed witho ut difficulty. Prominences along the bone were removed with a rongeur. Deep tissue was closed with 2-0 Vicryl suture in interrupted fashion. Subcutaneous tissue closed with 3-0 Vicryl suture in an in terrupted fashion. Skin closed with skin bobby. Attention was then directed toward the tibial hardware removal. The previous anterior lateral incisi on was utilized for exposure. Skin and subcutaneous tissue were sharply incised. Care was taken to avoid damage to the superficial peroneal nerve. The extensor retinaculum was incised. Dissection wa s carried just lateral to the extensor digitorum longus tendons, exposing the lateral aspect of the d istal tibia. The distal screws were identified and removed without difficulty. The plate was freed with a periosteum elevator and osteotomes. Plate was then pulled out in distal incision. The broken proximal screws came out with the plate. The extensor retinaculum was closed with 2-0 Vicryl suture in interrupted fashion. Subcutaneous tissue closed with 3-0 Vicryl suture in interrupted fashion an d the skin closed with 3-0 nylon interrupted vertical mattress sutures. Attention was then directed toward the medial tibia. The previous medial incision was utilized for e xposure. Skin and subcutaneous tissue were sharply incised. Care was taken to avoid damage to the s aphenous vein. Sharp dissection was carried down to the medial aspect of the tibia. Utilizing a chi harsha, the bony prominence, which had developed along the medial aspect of the tibia and anterior aspec t of the tibia, was removed. This bone was saved for possible later bone graft purposes. The line technician ior medial plate and screws were removed without difficulty. Kris wires were then placed parall el to the tibial plafond, parallel to the proximal tibia and perpendicular to the access of the tibia . Under fluoroscopic guidance, after protecting the dorsal and plantar aspect of the tibia with Marshal byron retractors, a saw was utilized to create an osteotomy in a medial and lateral direction leaving t he lateral cortex intact. The osteotomy was gapped open with osteotome and bone electrode cleaner. Under flu oroscopic guidance, the optimal correction was assessed. Local bone graft was harvested. A longitudinal incision was made along the lateral aspect of the pro ximal tibia overlying Gerdy's tubercle. Sharp dissection was carried down to the periosteal layer. Utilizing a chisel and osteotome, cortical window was elevated. Curettes were used to harvest cancel lous bone graft. The bone graft was impacted in place at a few of the more central and lateral aspec ts of the tibia at the medial opening osteotomy site. More structural cortical bone, which had been harvested from the medial aspect of the tibia, was impacted into place gaining more structural suppor t medially. A medial tibial periarticular locking plate ([employer]ynthe[employer]) was contoured to fit the medial ti dodie. After freeing up the medial extraperiosteal layer, both proximal and distal to the osteotomy wi th elevator, the plate was slid proximally and then back distally into proper position. A 3.5 mm bic ortical screws were placed both proximal and distal to the osteotomy site. Two 3.5 mm cortical locki ng screws were then placed through the incision distal to the osteotomy. Under fluoroscopic guidance after making small percutaneous incisions over the plate, 2 additional 3.5 mm bicortical locking scr ews were placed more proximally. Fluoroscopic views confirmed favorable osteotomy and hardware place ments. The tourniquet was deflated prior to final hardware placement and after 125 minutes with no u ntoward bleeding seen. Attention was then directed toward removal of 1 of the broken screws, which were protruding through t he medial tibia. Under fluoroscopic guidance, the tip of the screw was identified. A small incision was made overlying this. Utilizing the coring device and threaded removal device from the [employer] b roken screw removal set, the screw was removed medially without difficulty. The medial tibial incisi on was closed with 3-0 Vicryl suture and the subcutaneous tissue in interrupted fashion and 3-0 nylon interrupted vertical mattress sutures in the skin. The wounds were dressed with sterile Adaptic, 4 x 4, and Webril, and the leg was placed in a below-knee splint. Patient tolerated the procedure well and was taken to the recovery room, extubated, in stable condition postoperatively. All sponge, nee dle, and instrument counts were reported as being correct. COMPLICATIONS: None. PLAN: The patient will be discharged home, nonweightbearing on his operative extremity. /[id number]/MODL
== END 2017-03-28 16:23 | disposition home or self-care, planned readmission (81) ==
LOC: FSGY 09:42
PROVIDERS: ATTEND Orthopaedic Surgery Foot and Ankle Surgery
PROC: 0QPG04Z Removal of Internal Fixation Device from Right Tibia, Open Approach (ICD-10-PCS; principal; 2017-03-28 12:30)
PROC: 0QQG0ZZ Repair Right Tibia, Open Approach (ICD-10-PCS; principal; 2017-03-28 12:30)
PROC: 0QUG07Z Supplement Right Tibia with Autologous Tissue Substitute, Open Approach (ICD-10-PCS; principal; 2017-03-28 12:30)
PROC: 0QPJ04Z Removal of Internal Fixation Device from Right Fibula, Open Approach (ICD-10-PCS; principal; 2017-03-28 12:30)
DX: S82.871P Displaced pilon fracture of right tibia, subsequent encounter for closed fracture with malunion (principal)
CPT/HCPCS: C1713; C1769; J0690; J1100; J1170; J2001; J2250; J2405; J2704; J3010

== ENCOUNTER → 2017-06-22 | Outpatient (CLI) | payer MEDICAID | LOC: FIMAGING 10:19 | PROVIDERS: ATTEND Physician Assistant | DX: S82.391D Other fracture of lower end of right tibia, subsequent encounter for closed fracture with routine healing (principal) ==

== ENCOUNTER 2017-07-04 09:45 | Day surgery (SDC) | payer MEDICAID ==
--- NOTE | 2017-07-03 16:12 | GHP ---
[f rep st] PREOP HISTORY AND PHYSICAL DATE OF ADMISSION: 07/04/2017 CHIEF COMPLAINT: Right ankle. HISTORY OF PRESENT ILLNESS: Patient is a 36-year-old with involved history relative to his right ank le. Patient underwent open reduction, internal fixation of a tibial pilon fracture. He was weightbe aring early on against medical advise and developed failure of fixation with varus collapse. Patient subsequently underwent tibial osteotomy. He is doing well initially but developed some wound openin g and drainage. PAST MEDICAL HISTORY: Unremarkable. PAST SURGICAL HISTORY: Positive for multiple ankle surgeries. MEDICATIONS: He takes no medicines on a regular basis. ALLERGIES: Keflex. SOCIAL HISTORY: Negative for tobacco use. PHYSICAL EXAMINATION: GENERAL: He is alert and oriented x3, in no acute distress. HEENT: Head is normocephalic. Pupils equal, round, reactive to light. Extraocular eye movements intact. NECK: Brunner pple. No JVD or lymphadenopathy. CHEST: Clear to auscultation. HEART: Regular rate and rhythm. No murmurs or gallops. ABDOMEN: Soft, nontender, nondistended. GENITAL/RECTAL/BREAST: Exams defer red. EXTREMITY: There is diffuse swelling about his right lower leg. He has some superficial skin breakdown along the medial aspect of his distal tibia. ASSESSMENT: Possible right ankle infection. PLAN: It was recommended that irrigation/debridement be pursued with possible hardware removal if hi s fracture looks healed. /[id number]/MODL
[~2017-07-04 09:45] MED LIST: BUPIVACAINE 0.5% 30 ML SDV ONE; CLINDAMYCIN 900 MG/DEXTROSE 50 ML IV ONE
[2017-07-04] MEDS ORDERED: LR 1,000 ML IV ONE (09:54)
[2017-07-04] MEDS ORDERED: CLINDAMYCIN 900 MG/DEXTROSE/50 ML BAG IV ONE (10:21)
[2017-07-04] MEDS ORDERED: MIDAZOLAM 2 MG/2 ML VIAL ONE (10:24)
[2017-07-04] MEDS ORDERED: PROPOFOL/EMULSION 500 MG/50 ML BOTTLE IV ONE (10:24)
[2017-07-04] MEDS ORDERED: fentaNYL 100 MCG/2 ML INJ ONE ×3 (10:24→12:47)
[2017-07-04] MEDS ORDERED: NALOXONE HCL 0.4 MG/ML INJ IVP PRN (10:55)
--- NOTE | 2017-07-04 10:55 | PDANEPAE ---
ANE Past Medical History - Cardiovascular History Hx Hypertension: No Hx Arrhythmias: No Hx Chest Pain: No Hx Coronary Artery / Peripheral Vascular Disease: No Hx CHF / Valvular Disease: No Hx Palpitations: No - Pulmonary History Hx COPD: No Hx Asthma/Reactive Airway Disease: No Hx Recent Upper Respiratory Infection: No Hx Oxygen in Use at Home: No Hx Sleep Apnea: No Sleep Apnea Screening Result - Last Documented: Negative Pulmonary History Comment: tested positive for TB, CXR was negative but he did abx 2012 - Neurologic History Hx Cerebrovascular Accident: No Hx Seizures: No Hx Dementia: No - Endocrine History Hx Diabetes: No - Renal History Hx Renal Disorders: No - Liver History Hx Hepatic Disorders: No - Neurological & Psychiatric Hx Hx Neurological and Psychiatric Disorders: No - Cancer History Hx Cancer: No - Congenital Disorder History Hx Congenital Disorders: No - GI History Hx Gastrointestinal Disorders: No - Other Health History Other Health History: wears glasses - Chronic Pain History Chronic Pain: Yes (right leg numbness still) - Surgical History Prior Surgeries: 03/28/17 right ankle hardware removal and ORIF tibial osteotomy with [place]. 08/30/16 right tibia external fixator removed/ ORIF with Munday ANE Review of Systems Review of Systems: - Exercise capacity METS (RN): 6 METS ANE Patient History - Allergies Allergies/Adverse Reactions: cephalexin [From Keflex] Allergy (Verified 06/30/17 14:24) lips started swelling up - Home Medications Home Medications: NK [No Known Home Meds] 06/30/17 [Last Taken Unknown] - NPO status NPO Since - Liquids (Date): 07/03/17 NPO Since - Liquids (Time): 22:30 NPO Since - Solids (Date): 07/03/17 NPO Since - Solids (Time): 21:30 - Smoking Hx Smoking Status: Never smoked - Family Anes Hx Family Hx Anesthesia Complications: none ANE Labs/Vital Signs - Vital Signs Blood Pressure: 134/81 Heart Rate: 70 Respiratory Rate: 12 O2 Sat (%): 99 Height: 175.26 cm Weight: 77.11 kg ANE Physical Exam - Airway Neck exam: FROM Mallampati Score: Class 1 Mouth exam: normal dental/mouth exam - Pulmonary Pulmonary: no respiratory distress, no rales or rhonchi, clear to auscultation - Cardiovascular Cardiovascular: regular rate and rhythym, no murmur, rub, or gallop - ASA Status ASA Status: I ANE Anesthesia Plan Anesthesia Plan: GA w LMA
[2017-07-04] MEDS ORDERED: ONDANSETRON 4 MG/2 ML VIAL IVP PRN (11:00)
[2017-07-04] MEDS ORDERED: OXYCODONE/APAP 5/325 TAB PO PRN (11:00)
[2017-07-04] MEDS ORDERED: METOCLOPRAMIDE 10 MG/2 ML VIAL IVP PRN (11:00)
[2017-07-04] MEDS ORDERED: HYDROCODONE/APAP 5/325 TAB PO PRN (11:00)
[2017-07-04] MEDS ORDERED: ALBUTEROL 3 ML DEYVIAL IH PRN (11:00)
[2017-07-04] MEDS ORDERED: DEXAMETHASONE 4 MG/ML VIAL IVP PRN (11:00)
[2017-07-04] MEDS ORDERED: PROMETHAZINE HCL 25 MG/ML INJ IVP PRN (11:00)
[2017-07-04] MEDS ORDERED: MEPERIDINE 25 MG/ML SYR IVP PRN (11:00)
[2017-07-04] MEDS ORDERED: LR 500 ML IV PRN (11:00)
[2017-07-04] MEDS ORDERED: ACETAMINOPHEN 500 MG TAB PO PRN (11:00)
[2017-07-04] MEDS ORDERED: LIDOCAINE 2% 5 ML SDV ONE (11:27)
[2017-07-04] MEDS ORDERED: ONDANSETRON 4 MG/2 ML VIAL ONE (11:28)
[2017-07-04] MEDS ORDERED: KETOROLAC 30 MG/1 ML SDV ONE (11:31)
[2017-07-04] MEDS ORDERED: PROPOFOL 200 MG/20 ML VIAL ONE (11:31)
--- NOTE | 2017-07-04 12:28 | POSTOPPROG ---
Post Op Note Date of Operation: 07/04/17 Surgeon: Evaristo Bowman Anesthesia: GET(General Endotracheal) Pre-op Diagnosis: Retained hardware R tibia, possible infection Post-op Diagnosis: same Procedure: HWR, I&D Inf/Abcess present in the surg proc area at time of surgery?: Yes Depth: Deep Incisional (Fascial) (Possible. cultures obtained) EBL: 50-100
[2017-07-04] MEDS: fentaNYL 100 MCG/2 ML INJ IVP PRN ×2 (12:49→13:11)
[2017-07-04] MEDS ORDERED: OXYCODONE/APAP 5/325 TAB ONE ×2 (13:11→14:43)
--- NOTE | 2017-07-04 13:49 | POSTANESTH ---
Post Anesthetic Evaluation Cardiovascular Status: Normal, Stable Respiratory Status: Normal, Stable Level of Consciousness/Mental Status: Can Participate in Eval Pain Control: Adequate, Prn Tx Ordered Nausea/Vomiting Control: Adequate, Prn Tx Ordered Complications Possibly Related to Anesthesia: None Noted
[2017-07-04 14:00] VITALS: PULSE 72
[2017-07-04 14:10] VITALS: BP 121/69; RESP 12; O2SAT 93
[2017-07-04 14:11] VITALS: TEMP 97.5
--- NOTE | 2017-07-05 07:30 | GOP ---
[f rep st] OPERATIVE REPORT DATE OF OPERATION: 07/04/2017 SURGEON: Evaristo Bowman MD ANESTHESIA: General. PREOPERATIVE DIAGNOSIS: 1. Symptomatic retained hardware, right tibia. 2. Right lower leg probable infection. POSTOPERATIVE DIAGNOSIS: 1. Symptomatic retained hardware, right tibia. 2. Right lower leg probable infection. PROCEDURE PERFORMED: 1. Hardware removal, right tibia. 2. Irrigation and debridement, right lower leg, including skin, subcutaneous tissue, and bone. 3. Intraoperative use of fluoroscopy. FINDINGS: ESTIMATED BLOOD LOSS: Minimal. INDICATIONS: The patient is a 36-year-old with involved history relative to his right lower leg. He initially sustained a complex pilon fracture, which underwent open reduction and internal fixation. The patient weightbeared early, resulting in varus collapse. He then subsequently underwent a tibia l osteotomy. After initial favorable healing, he developed some wound breakdown and drainage, which was suspicious for infection. It was felt that formal operative debridement and removal of hardware was indicated. The patient acknowledged he understood the potential risks including but not limited to bleeding, infection, neurovascular damage leading to loss of limb and limb function, nonunion requ iring additional operative treatment, persistent infection despite operative treatment, and anestheti c risks. He acknowledged he understood the potential risks, planned procedure, and postoperative cristiane n well, and all questions were answered prior to surgery. He gave his consent for the operative proc edure. DESCRIPTION OF PROCEDURE: Patient was brought to the operating room without administration of IV ant ibiotics until intraoperative cultures were obtained. He was placed in a supine position, and genera l anesthetic was administered. Tourniquet was placed on his right thigh. His right lower extremity was prepped and draped in standard sterile fashion. After Leopoldo wrap exsanguination, tourniquet was in flated to 250. The previous medial distal tibial incision was utilized for exposure. Skin and subcutaneous tissue w ere sharply incised. Sharp dissection was carried down to the hardware. Cultures were obtained. Th ere was no overt purulence or gross infection. The screws visible through this portion of the incisi on and plate were removed without difficulty. The 2 proximal screws were identified fluoroscopically , and through stab incisions, screws were identified and removed. The plate was freed from its soft tissue overgrowth and periosteal adherence with an elevator and removed through the distal incision. Additional cultures of the tissue overlying the periosteal layer were obtained. Upon examination of the osteotomy site with a dental pick, no visible or palpable defects were found. Debridement and irrigation were performed. A curette was utilized to clean up all of the soft tissue overlying the medial aspect of the tibia. Fine-tip curettes were placed in the screw holes, curetti ng them out. The wound was then irrigated copiously with 9 L of sterile saline utilizing cystoscopy tubing. Attention was directed toward closure. The tourniquet was deflated with no untoward bleeding seen. Subcutaneous tissue was closed with 3-0 Vicryl suture in an interrupted fashion, and the skin was inocencio sed with 3-0 nylon interrupted sutures. The wounds were dressed with sterile Adaptic, 4 x 4, ABD gau ze, and Webril. A below-knee splint was applied. Patient was taken to the recovery room, extubated, in stable condition postoperatively. All sponge, needle, and instrument counts were reported as emilio ng correct. DRAINS: None. COMPLICATIONS: None. PLAN: Patient will be discharged home nonweightbearing on his operative extremity. /[id number]/MODL
== END 2017-07-04 14:50 | disposition home or self-care (01) ==
LOC: FSGY 09:45
PROVIDERS: ATTEND Orthopaedic Surgery Foot and Ankle Surgery
PROC: 0QPG04Z Removal of Internal Fixation Device from Right Tibia, Open Approach (ICD-10-PCS; principal; 2017-07-04 11:00)
PROC: 0JBN0ZZ Excision of Right Lower Leg Subcutaneous Tissue and Fascia, Open Approach (ICD-10-PCS; principal; 2017-07-04 11:00)
DX: T81.4XXA Infection following a procedure, initial encounter (principal); B95.61 Methicillin susceptible Staphylococcus aureus infection as the cause of diseases classified elsewhere; Y83.1 Surgical operation with implant of artificial internal device as the cause of abnormal reaction of the patient, or of later complication, without mention of misadventure at the time of the procedure
CPT/HCPCS: J1885; J2250; J2405; J2704; J3010

== ENCOUNTER → 2017-07-17 | Day surgery (SDC) | payer MEDICAID | END | disposition home or self-care (01) | LOC: FIMAGING 11:17 | PROVIDERS: ATTEND Internal Medicine Infectious Disease | PROC: 02HV33Z Insertion of Infusion Device into Superior Vena Cava, Percutaneous Approach (ICD-10-PCS; principal; 2017-07-17) | DX: Z45.2 Encounter for adjustment and management of vascular access device (principal); T81.4XXA Infection following a procedure, initial encounter; A49.01 Methicillin susceptible Staphylococcus aureus infection, unspecified site; M86.171 Other acute osteomyelitis, right ankle and foot | CPT/HCPCS: 36556; 77001; C1751 ==